=== PATIENT | male | born 1980 | race Caucasian/White ===

== ENCOUNTER → 2018-12-13 10:30 | Outpatient (CLI) | payer OTHER, SELFPAY ==
[2018-12-13 12:31] LABS: Cholesterol 188 mg/dL (200); Glucose 100 mg/dL (74-106); High Density Lipoprotein 47 mg/dL; Triglycerides 87 mg/dL; Very Low Density Lipoprotein 17 mg/dL (5-40)
== END ==
PROVIDERS: Family Provider Family Medicine; PCP Family Medicine; Referring Provider Family Medicine; Visit Provider Family Medicine
DX: Z82.49 Family history of ischemic heart disease and other diseases of the circulatory system (principal); Z83.3 Family history of diabetes mellitus
CPT/HCPCS: 36415; 80061; 82947

== ENCOUNTER → 2020-07-08 10:18 | Outpatient (CLI) | payer OTHER, SELFPAY ==
[2020-07-08 12:28] LABS: Cholesterol 212 mg/dL (200); Glucose 105 mg/dL (74-106); High Density Lipoprotein 52 mg/dL; Triglycerides 99 mg/dL; Very Low Density Lipoprotein 20 mg/dL (5-40)
== END ==
PROVIDERS: PCP Family Medicine; Visit Provider Family Medicine
DX: Z00.00 Encounter for general adult medical examination without abnormal findings (principal); Z82.49 Family history of ischemic heart disease and other diseases of the circulatory system
CPT/HCPCS: 36415; 80061; 82947